=== PATIENT | female | born 1985 | race Caucasian/White ===

== ENCOUNTER 2020-09-06 02:47 | Emergency (ER) | payer SELFPAY ==
[~2020-09-06 02:47] MED LIST: AGM875T PO; HYDR-1231 PO; NAPR-243 PO; [UNRECOGNIZED DRUG - OTHER]
[2020-09-06] MEDS ORDERED: ORPHENADRINE 60 MG/2 ML (NORFLEX) AMP (ED ONLY) IM STA (03:11)
--- NOTE | 2020-09-06 03:20 | ED General ---
General Chief Complaint: General Problems/Pain Stated Complaint: NECK PAIN Nursing Triage Note: Pt states she woke up yesterday morning with neck pain. Pt tried alternating ice/ heat and taking ibuprofen but had no relief from the pain. Pt states its hard to turn her head either direction Source of Information: Patient History of Present Illness Date Seen by Provider: Sep 06, 2020 Time Seen by Provider: 02:51 Initial Comments 35 yo female presenting with complaint of pain and spasm in right shoulder and neck area. She denies direct trauma or injury. She does help with lifting and moving her mother, who is on Hospice. She also had been swimming and thinks she may have strained her neck and shoulder. She woke up yesterday with increased neck pain going into her shoulder. She denies any numbness or tingling. She has increased pain with trying to move her head. Trying to lift her arm and shoulder increases the pain as well. She has tried ibuprofen and Tylenol as well as multiple topical remedies and heat but not having any significant improvement. She felt like things were worse this morning and was h aving difficulty with moving her mother so she came to the ER to get some help. Timing/Duration: 1-2 Days, Getting Worse Severity: Moderate Modifying Factors: worse with Movement Associated Systoms: No Chest Pain, No Cough, No Diaphoresis, No Fever/Chills; Headaches (right sided posterior headache from where the muscle is tight and spasms going up the right side of her neck); No Loss of Appetite, No Malaise, No Nausea/Vomiting, No Rash, No Seizure, No Shortness of Air, No Syncope, No Weakness Allergies and Home Medications Allergies Coded Allergies: iron (Unverified Adverse Reaction, Mild, N/V, 09/09/13) Home Medications Baclofen 10 Mg Tablet, 10 MG PO TID PRN for MUSCLE SPASMS Prescribed by: MARY COTO on 09/06/20320 Ibuprofen 600 Mg Tablet, 600 MG PO Q8H PRN for pain/inflammation Prescribed by: MARY COTO on 09/06/20320 Patient Home Medication List Home Medication List Reviewed: Yes Review of Systems Review of Systems Constitutional: No chills, No fever EENTM: no symptoms reported Respiratory: no symptoms reported Cardiovascular: no symptoms reported Gastrointestinal: no symptoms reported Genitourinary: no symptoms reported Musculoskeletal: see HPI, neck pain (right trapezius muscle up the right side of neck) Skin: No rash Psychiatric/Neurological: Anxiety, Headache (right occipital head pain); Denies Numbness, Denies Paresthesia, Denies Tingling, Denies Tremors, Denies Weakness Past Gpidczt-Varpbz-Pornik Hx Patient Social History Tobacco Use?: Yes Tobacco type used: Cigarettes Smoking Status: Current Everyday Smoker Use of E-Cig and/or Vaping dev: No Substance use?: No Alcohol Use?: No Pt feels they are or have been: No Past Medical History Surgeries: No Respiratory: Yes Asthma Cardiac: No Neurological: No Reproductive Disorders: No 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 oz. 56.602779tz; BMI Method:Stated General Appearance: No Apparent Distress, Anxious HEENT: PERRL/EOMI Neck: Tender Lateral (right paraspinal and trapezius muscle tender to palpation with tightness and spasms palpated); No Tender Midline Respiratory: Chest Non Tender, Lungs Clear, Normal Breath Sounds Cardiovascular: Regular Rate, Rhythm, Normal Peripheral Pulses Back: No Vertebral Tenderness, Muscle Spasm (in trapezius and rhomboid muscle distribution on right side) Extremity: Normal Capillary Refill, Normal Range of Motion (pain with raising right shoulder/arm in the trapezius muscle area) Neurologic/Psychiatric: Alert, Oriented x3, No Motor/Sensory Deficits, 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 Treat with muscle relaxer and anti-inflammatories. Give Norflex injection for muscle relaxer here. Patient declined anti-inflammatory here in the ED and stated she could take ibuprofen when she got home. Prescription for baclofen and ibuprofen sent to [facility]. Counseled on follow-up and return precautions. Given information about using heat for pain as well as stretching exercises for the neck and upper shoulder back. Likely strained the muscle with repetitive motion and lifting with her mother as well as the recent swimming that she was not used to doing. Departure Impression Primary Impression: Strain of right trapezius muscle Qualified Codes: S46.811A - Strain of other muscles, fascia and tendons at shoulder and upper arm level, right arm, initial encounter Additional Impressions: Strain of cervical portion of right trapezius muscle Trapezius muscle spasm Disposition: HOME, SELF-CARE Condition: Stable Departure-Patient Inst. Decision time for Depature: 03:16 Referrals: NO,LOCAL PHYSICIAN (PCP) Primary Care Physician [facility] Patient Instructions: Muscle Spasm ED, Muscle Strain ED, Using Heat for Pain, Cervical Sprain ED, Neck Pain Exercises Add. Discharge Instructions: Continue with Ibuprofen 600 mg every 8 hours as needed for pain and inflammation. Take the muscle relaxer Baclofen (Lioresal) 10 mg up to every 8 hours as needed for pain and muscle spasm. May continue to use heat to try and help the muscle relax. Try some gentle stretching of the neck and shoulder to help the Trapezius muscle relax and not be so inflamed and spasm with tightness. If having continued problems/concerns you could also check with [facility] ([facility]) by calling [phone] to get established with a local provider in the clinic All discharge instructions reviewed with patient and/or family. Voiced understanding. Scripts Ibuprofen (Ibuprofen) 600 Mg Tablet 600 MG PO Q8H PRN for pain/inflammation for 10 Days, #30 TAB 0 Refills Prov: MARY COTO MD 09/06/20 Baclofen (Baclofen) 10 Mg Tablet 10 MG PO TID PRN for MUSCLE SPASMS for 7 Days, #21 TAB 0 Refills Prov: MARY COTO MD 09/06/20 Images Torso/Trunk 1 - Muscle Spams, Tenderness (tender to palpation and muscle spasms with tightness in right trapezius muscle extending up the neck on right side. no vertebral or bony tenderness. no bruising or rash) MARY COTO MD Sep 06, 2020 03:19
[2020-09-06] MEDS ORDERED: BACL10TA PO (03:21)
[2020-09-06] MEDS ORDERED: IBUP-1773 PO (03:21)
[2020-09-06 03:22] VITALS: BP 144/98
== END 2020-09-06 03:23 | disposition home or self-care (01) ==
LOC: EDUNIT# 02:47 → ER FS 02:51
DX: S46.811A Strain of other muscles, fascia and tendons at shoulder and upper arm level, right arm, initial encounter (principal); S16.1XXA Strain of muscle, fascia and tendon at neck level, initial encounter; M62.830 Muscle spasm of back; J45.909 Unspecified asthma, uncomplicated; F17.210 Nicotine dependence, cigarettes, uncomplicated; X50.0XXA Overexertion from strenuous movement or load, initial encounter
CPT/HCPCS: 99284

== ENCOUNTER 2021-11-18 04:08 | Emergency (ER) | payer MEDICAID ==
[~2021-11-18] VITALS: Ht 160 cm; Wt 69.0 kg
--- NOTE | 2021-11-18 05:12 | ED GU-Female ---
General Chief Complaint: OB < 20 WEEKS Stated Complaint: 2 MONTHS PREG, WOKE UP BLEEDING Nursing Triage Note: REPORTS BEING APPROX. 2 MONTHS WAKING UP WITH VAGINAL BLEEDING APPROX. 0230. HAS NOT HAD TO CHANGE PAD SINCE STARTED. Source: patient (ALAN ENRIQUEZ) History of Present Illness Date Seen by Provider: Nov 18, 2021 Time Seen by Provider: 04:40 Initial Comments This is a 36 year old who presents with vaginal bleeding. Patient states she is approximately 8 weeks and woke up early this morning with vaginal bleeding. Patient reports approximately a softball sized blood spot on her sheets. She states she went to the bathroom, put on a pad, and came to the ED. She states she does not think she has soaked through her current pad but is unsure. Patient reports lower abdominal pain, specifically on the right side. She states the abdominal pain has been present for about a week. Patient states she last had intercourse about 24 hours ago. Patient denies any bleeding immediately after intercourse. Patient states that about a week ago she was seen in an ED in [place] where she was diagnosed with trichomonas and had a transvaginal ultrasound that estimated her gestational age to be around 6 weeks at the time. Patient states she was treated but her partner has not been treated. Due to irregular periods, patient denies knowing when her LMP was. Based off of [facility] imaging report from patient, her BLANCA is 07/07/22 with a GA of approximately 7 weeks. Patient has not established care with an OB. Patient states she does not know her blood type. Patient denies complications with previous pregnancies. Patient denies fever, aches, chills, SOA, chest pain, or dizziness. Timing/Duration: this morning Severity/Quality: mild Location: RLQ (abdominal pain), vaginal (vaginal bleeding) Radiation: none Activities at Onset: rest Prior Genitourinary Problems: none Sexual Marquand History: single partner Associated Symptoms: abdominal pain; No dysuria, No fever/chills (ENRIQUEZMARIPOSA MCMULLENA) Initial Comments Pain is primarily in the right inguinal region. Patient presents pictures of her ultrasound demonstrating what appears to be a gestational sac with no anatomy visible. She does not know her LMP and states that no EDC was given to her. She reports her partner was not treated when she was treated for trichomonas. She resumed having intercourse with him after her treatment. She appears to have minimal active bleeding after arriving to the emergency room with very minimal blood on her pad. Patient reports that an MRI was performed during her ER visit in [place] to evaluate for appendicitis. She reports her appendix was not visualized. Patient intends to establish obstetrical care with Dr. GREEN. (OLENA SHEFFIELD MD) Allergies and Home Medications Allergies Coded Allergies: iron (Unverified Adverse Reaction, Mild, N/V, 09/09/13) Patient Home Medication List Home Medication List Reviewed: Yes (ALAN ENRIQUEZ) Discontinued Medications Baclofen (Baclofen) 10 Mg Tablet, 10 MG PO TID PRN for MUSCLE SPASMS Discontinued Reason: No Longer Taking Prescribed by: MARY COTO on 09/06/20320 Last Action: Discontinued Ibuprofen (Ibuprofen) 600 Mg Tablet, 600 MG PO Q8H PRN for pain/inflammation Discontinued Reason: No Longer Taking Prescribed by: MARY COTO on 09/06/20320 Last Action: Discontinued [Stomach Med (Ulcer)] , (Reported) Discontinued Reason: No Longer Taking Entered as Reported by: YULI MEJIA on 09/09/13 1613 Last Action: Discontinued Review of Systems Review of Systems Constitutional: no symptoms reported; No chills, No dizziness, No fever, No weakness EENTM: no symptoms reported Respiratory: no symptoms reported; No short of breath Cardiovascular: no symptoms reported; No chest pain Gastrointestinal: RLQ, abdominal pain (RLQ) Genitourinary: no symptoms reported : Yes Expected Date of Delivery: Jul 07, 2022 Musculoskeletal: no symptoms reported Skin: no symptoms reported Psychiatric/Neurological: No Symptoms Reported Endocrine: No Symptoms Reported Hematologic/Lymphatic: No Symptoms Reported (ALAN ENRIQUEZ) All Other Systemes Reviewed Negative Unless Noted: Yes (ALAN ENRIQUEZ) Past Zchpohs-Wiljob-Vdvkjf Hx Patient Social History Tobacco Use?: Yes Substance use?: No Alcohol Use?: No Pt feels they are or have been: No (ALAN ENRIQUEZ) Immunizations Up To Date First/Initial COVID19 Vaccinat: NA (ALAN ENRIQUEZ) Past Medical History Surgery/Hospitalization HX: C-SECT X3, PTSD Surgeries: No Respiratory: Yes Asthma Cardiac: No Neurological: No Last Menstrual Period: Oct 02, 2021 Reproductive Disorders: No 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 oz. 56.634744kv; 26.00 BMI Method:Stated General Appearance: WD/WN, no apparent distress HEENT: PERRL/EOMI Cardiovascular: regular rate, rhythm, no murmur Respiratory: lungs clear, normal breath sounds, no respiratory distress, no accessory muscle use Gastrointestinal: normal bowel sounds, soft; No distended, No guarding; tenderness (RLQ tenderness with palpation); No hernia Neurologic/Psychiatric: alert, normal mood/affect, oriented x 3 Skin: normal color, warm/dry FHTs were unable to be found with doppler. This was anticipated with gestational age of approximately 7wks (ALAN ENRIQUEZ) Progress/Results/Core Measures Suspected Sepsis SIRS Temperature: Pulse: 91 Respiratory Rate: 18 Laboratory Tests 11/18/21 05:10: Blood Pressure 136 /88 Mean: 104 Laboratory Tests 11/18/21 05:10: (ALAN ENRIQUEZ) Results/Orders Lab Results Laboratory Tests Test 11/18/21 05:10 11/18/21 06:04 Range/Units White Blood Count 14.3 H 4.3-11.0 10^3/uL Red Blood Count 3.77 L 3.80-5.11 10^6/uL Hemoglobin 11.9 11.5-16.0 g/dL Hematocrit 34 L 35-52 % Mean Corpuscular Volume 89 80-99 fL Mean Corpuscular Hemoglobin 32 25-34 pg Mean Corpuscular Hemoglobin Concent 35 32-36 g/dL Red Cell Distribution Width 12.8 10.0-14.5 % Platelet Count 330 130-400 10^3/uL Mean Platelet Volume 9.1 9.0-12.2 fL Immature Granulocyte % (Auto) 1 % Neutrophils (%) (Auto) 73 42-75 % Lymphocytes (%) (Auto) 17 12-44 % Monocytes (%) (Auto) 7 0-12 % Eosinophils (%) (Auto) 2 0-10 % Basophils (%) (Auto) 1 0-10 % Neutrophils # (Auto) 10.5 H 1.8-7.8 10^3/uL Lymphocytes # (Auto) 2.4 1.0-4.0 10^3/uL Monocytes # (Auto) 1.0 0.0-1.0 10^3/uL Eosinophils # (Auto) 0.3 0.0-0.3 10^3/uL Basophils # (Auto) 0.1 0.0-0.1 10^3/uL Immature Granulocyte # (Auto) 0.1 0.0-0.1 10^3/uL Neutrophils % (Manual) 73 % Lymphocytes % (Manual) 21 % Monocytes % (Manual) 4 % Eosinophils % (Manual) 1 % Basophils % (Manual) 1 % Rishabh Cells SLIGHT Urine Color OTHER H Urine Clarity SL CLOUDY Urine pH 5.5 5-9 Urine Specific [place] 1.020 1.016-1.022 Urine Protein TRACE H NEGATIVE Urine Glucose (UA) NEGATIVE NEGATIVE Urine Ketones NEGATIVE NEGATIVE Urine Nitrite NEGATIVE NEGATIVE Urine Bilirubin NEGATIVE NEGATIVE Urine Urobilinogen 0.2 < = 1.0 MG/DL Urine Leukocyte Esterase NEGATIVE NEGATIVE Urine RBC (Auto) 3+ H NEGATIVE Urine RBC 50-100 H /HPF Urine WBC NONE /HPF Urine Squamous Epithelial Cells 0-2 /HPF Urine Crystals NONE /LPF Urine Bacteria NEGATIVE /HPF Urine Casts NONE /LPF Urine Mucus SMALL H /LPF Urine Culture Indicated NO (OLENA SHEFFIELD MD) My Orders Orders - OLENA SHEFFIELD MD Ua Culture If Indicated (11/18/21 04:59) Cbc With Automated Diff (11/18/21 04:59) Abo Rh Type (11/18/21 04:59) Manual Differential (11/18/21 05:10) Hcg,Quantitative (11/18/21 05:58) (OLENA SHEFFIELD MD) Vital Signs/I&O 11/18/21 04:29 Temp 36.2 Pulse 91 Resp 18 B/P (MAP) 136/88 (104) Pulse Ox 97 O2 Delivery Room Air (OLENA SHEFFIELD MD) Vital Signs/I&O Capillary Refill : Less Than 3 Seconds (ZOEALAN) Blood Pressure Mean: 104 Progress Note : Time: 05:41 Progress Note Patient's right inguinal pain and tenderness does not seem very intense on evaluation. There are no palpable masses or hernias. She has no suprapubic pain or tenderness. She presents evidence from the prior ultrasound that she had an intrauterine gestational sac. Labs and urine were collected and are pending. We did attempt to obtain heart tones by Doppler but were unsuccessful. Consideration was given to possibly treating the trichomonas since patient was likely reexposed by resuming sexual contact with the same partner. However, there is controversy regarding the risks of metronidazole use versus the risk of trichomonas infection. Since there is no real clear benefit, patient was not retreated. Care is being transitioned to Dr. Gunter at this time with pending hCG quant. (OLENA SHEFFIELD MD) Departure Communication (Admissions) Assumed care of the patient at shift change, 0 600 with hCG levels pending. I agree with the previous provided history. Exam today shows very minimal abdominal pain but she does have some discomfort in the right lower groin, abdomen. She has had an MRI that was ultimately unable to visualize the appendix. Given that her pain has been present off and on for about 2 weeks I seriously doubt that this is from her appendix. No believe this is likely from a kidney stone at this time. He has had an ultrasound confirming intrauterine so ectopic is very unlikely at this point. hCG levels are normal. I counseled her on possibility that she is having a miscarriage versus subchorionic hemorrhage versus other cause of vaginal bleeding during early pr egnancy. She states understanding and will follow-up with an OB provider in the next 48 hours. Advise she return to the emergency department if she is bleeding more than 1 pad/tampon per hour for she gets dizzy, lightheaded. She states understanding. Her blood type is O+, does not require RhoGAM. Discharged in stable condition (STELLA GUNTER DO) Impression Primary Impression: Right inguinal pain Additional Impression: Vaginal bleeding during Disposition: HOME, SELF-CARE Condition: Stable Departure-Patient Inst. Referrals: CHRISTY GREEN MD NO,LOCAL PHYSICIAN (PCP) Primary Care Physician Add. Discharge Instructions: Please establish care with Dr. GREEN but call to schedule. Blood inurine no cramping, bleeding in the emergency room the emergency department. Return to the emergency department for any severe pain, bleeding requiring changing a pad/tampon more than once an hour, shortness of breath or dizziness. Increase your fluids at home and rest as needed. All discharge instructions reviewed with patient and/or family. Voiced understanding. Medical Student Attestation and Attending Note: I have personally interviewed and examined this patient along with Krista Enriquez, MS 4. I have reviewed student documentation including history, physical, and assessments. I agree with the documentation except where otherwise noted. Exam: General: Alert, oriented, no acute distress, well developed HEENT: Normocephalic and atraumatic Heart: Regular rate and rhythm without murmur Lungs: Clear to auscultation bilaterally with normal effort Abdomen: Soft, tenderness in the right inguinal region without mass or bulging to suggest hernia, nondistended, normal bowel sounds Neuropsych: Alert, oriented, no focal deficits Skin: Warm and dry without rashes (OLENA SHEFFIELD MD) Copy Copies To 1: CHRISTY GREEN MD, MIKAELA Nov 18, 2021 05:12 OLENA SHEFFIELD MD Nov 18, 2021 05:44 STELLA GUNTER DO Nov 18, 2021 06:45
[2021-11-18 05:25] LABS: BILIRUBIN,URINE NEGATIVE (NEGATIVE); CLARITY,URINE SL CLOUDY; COLOR,URINE OTHER; GLUCOSE, URINE (UA) NEGATIVE (NEGATIVE); KETONES,URINE NEGATIVE (NEGATIVE); LEUKOCYTE ESTERASE ,URINE NEGATIVE (NEGATIVE); NITRITE,URINE NEGATIVE (NEGATIVE); PH,URINE 5.5 (5-9); PROTEIN,URINE TRACE (NEGATIVE)
[2021-11-18 05:28] LABS: BASOPHILS # (AUTO) 0.1 10^3/uL (0.0-0.1); BASOPHILS % (AUTO) 1 % (0-10); EOSINOPHILS # (AUTO) 0.3 10^3/uL (0.0-0.3); EOSINOPHILS % (AUTO) 2 % (0-10); HEMATOCRIT 34 % (35-52); HEMOGLOBIN 11.9 g/dL (11.5-16.0); LYMPHOCYTES # (AUTO) 2.4 10^3/uL (1.0-4.0); LYMPHOCYTES % (AUTO) 17 % (12-44); MEAN CORPUSCULAR HEMOGLOBIN 32 pg (25-34); MEAN CORPUSCULAR HGB CONC 35 g/dL (32-36); MEAN CORPUSCULAR VOLUME 89 fL (80-99); MEAN PLATELET VOLUME 9.1 fL (9.0-12.2); MONOCYTES % (AUTO) 7 % (0-12); NEUTROPHILS # (AUTO) 10.5 10^3/uL (1.8-7.8); NEUTROPHILS % (AUTO) 73 % (42-75); PLATELET COUNT 330 10^3/uL (130-400); WHITE BLOOD COUNT 14.3 10^3/uL (4.3-11.0)
[2021-11-18 05:37] LABS: BACTERIA,URINE NEGATIVE /HPF; RBC,URINE 50-100 /HPF; SQUAMOUS EPITHELIAL CELL,UR 0-2 /HPF
[2021-11-18 06:11] LABS: BASOPHILS % (MANUAL) 1 %; EOSINOPHILS % (MANUAL) 1 %; LYMPHOCYTES % (MANUAL) 21 %; MONOCYTES % (MANUAL) 4 %; NEUTROPHILS % (MANUAL) 73 %
[2021-11-18 06:12] LABS: BURR CELLS SLIGHT
[2021-11-18 06:46] VITALS: BP 132/78
== END 2021-11-18 06:50 | disposition home or self-care (01) ==
LOC: EDUNIT# 04:08 → ER 04:14
DX: O20.9 Hemorrhage in early pregnancy, unspecified (principal); Z72.0 Tobacco use; Z3A.08 8 weeks gestation of pregnancy; Z28.310 Unvaccinated for COVID-19
CPT/HCPCS: 36415; 81000; 84702; 85007; 85027; 86900; 86901

== ENCOUNTER → 2021-11-18 | Outpatient (CLI) | payer MEDICAID ==
[~2021-11-18] MED LIST changes: +BACL10TA PO; +IBUP-1773 PO
--- NOTE | 2021-11-18 13:11 | Diagnostic Imaging Report ---
INDICATION: Vaginal bleeding in early . FINDINGS: The uterus measures 9.0 x 4.1 x 5.5 cm. There is an intrauterine gestational sac containing a pole. Slater-Marietta-rump length measurement is consistent with 7 weeks 2 days gestation. heart rate was recorded at 147 BPM. No perigestational sac hemorrhage is detected. The adnexa are unremarkable. IMPRESSION: Single live IUP 7 weeks 2 days gestational age. Estimated date of confinement sonographically is 07/05/2022. No complicating features are detected. Dictated by: Dictated on workstation # [id number]
== END ==
LOC: RAD 10:50
PROVIDERS: ATTEND Obstetrics & Gynecology
DX: O20.9 Hemorrhage in early pregnancy, unspecified (principal); Z3A.01 Less than 8 weeks gestation of pregnancy
CPT/HCPCS: 76801; 76817

== ENCOUNTER 2021-11-26 19:47 | Emergency (ER) | payer MEDICAID ==
[~2021-11-26] VITALS: Ht 160 cm; Wt 69.4 kg
[2021-11-26 20:01] VITALS: BP 154/86
--- NOTE | 2021-11-26 20:25 | ED Abdominal Pain ---
General Chief Complaint: Abdominal/GI Problems Stated Complaint: ABD PAIN,PAIN DOWN LEGS,WEAK,SHAKY,10 WKS PREG. Nursing Triage Note: Generalized abd pain going on for approx 3 wks that radiates down both her legs. Pt reports intermittent bleeding with clots. She reports she is 10 wks and has been following up with OB. She also is reporting headaches and generalized weakness. Pt denies any problems with urination or bowels at this time. Source of Information: Patient Exam Limitations: No Limitations History of Present Illness Date Seen by Provider: Nov 26, 2021 Time Seen by Provider: 20:00 Initial Comments 36-year-old female currently approximately 10 weeks presents for pelvic pain, vaginal bleeding. Symptoms started about 3 weeks ago. She was initially seen here after she had a normal ultrasound showing an intrauterine gestational sac. Work-up at that time was unremarkable. She followed up with OB last week and had an ultrasound with normal heart tones and normal appearance. She continues to have cramping, bleeding. She does not require RhoGAM per record review. Symptoms are relatively unchanged. She has been taking Tylenol and was recently told to take Motrin as well. She denies any fevers chills nausea or vomiting. Pain is described as a cramping sensation with radiation into her right leg. She denies any changes in bowel or bladder habits. She has had her urine checked her real estate subagent twice and here wants with no evidence for infection. She has also had an MRI to rule out appendicitis which was unable to visualize the appendix but there are no secondary signs of appendicitis. Allergies and Home Medications Allergies Coded Allergies: iron (Unverified Adverse Reaction, Mild, N/V, 09/09/13) Patient Home Medication List Home Medication List Reviewed: Yes Review of Systems Review of Systems Constitutional: no symptoms reported EENTM: No Symptoms Reported Respiratory: No Symptoms Reported Cardiovascular: No Symptoms Reported Gastrointestinal: Abdominal Pain Genitourinary: Other (Vaginal bleeding) Musculoskeletal: no symptoms reported Skin: no symptoms reported Psychiatric/Neurological: No Symptoms Reported Endocrine: No Symptoms Reported Hematologic/Lymphatic: No Symptoms Reported Past Gyzldky-Zirzqc-Vxsfpf Hx Patient Social History Tobacco Use?: No Use of E-Cig and/or Vaping dev: No Substance use?: No Alcohol Use?: No Immunizations Up To Date First/Initial COVID19 Vaccinat: NA Past Medical History Surgery/Hospitalization HX: C-SECT X3, PTSD Surgeries: No Respiratory: Yes Asthma Cardiac: No Neurological: No Last Menstrual Period: Sep 17, 2021 Reproductive Disorders: No 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 oz. 56.807611bz; 27.00 BMI Method:Stated General Appearance: WD/WN, no apparent distress HEENT: normal ENT inspection, TMs normal, pharynx normal Neck: non-tender, full range of motion, supple, normal inspection Respiratory: chest non-tender, lungs clear, normal breath sounds, no respiratory distress, no accessory muscle use Cardiovascular: regular rate, rhythm, no edema, no gallop, no JVD, no murmur Gastrointestinal: normal bowel sounds, soft, no organomegaly, tenderness (Sup rapubic tenderness with voluntary guarding. No rebound tenderness. No mass organomegaly. No skin changes) Extremities: normal range of motion, non-tender, normal inspection, no pedal edema, no calf tenderness, normal capillary refill Back: normal inspection, no CVA tenderness, no vertebral tenderness Neurologic/Psychiatric: alert, normal mood/affect, oriented x 3 Skin: normal color, warm/dry Lymphatic: no adenopathy Progress/Results/Core Measures Results/Orders My Orders Orders - STELLA GUNTER DO Hydrocodone/Apap 5/325 Tablet (Lortab 5 (11/26/21 20:30) Vital Signs/I&O 11/26/21 20:01 Temp 36.7 Pulse 104 Resp 24 B/P (MAP) 154/86 (108) Pulse Ox 100 Blood Pressure Mean: 108 Departure Communication (Admissions) Patient is hemodynamically stable. She has had extensive work-up to rule out ectopic , uterine, tubal or ovarian abnormalities, intra-abdominal concerns. All have been negative at this time. I think this makes emergent medical condition extremely unlikely at this time. We will go ahead and treat her pain. No indication for repeat urinalysis that she has had 3 since the onset of her symptoms all of which were negative. No utility in a pelvic exam at this point as this has been done recently and she had a normal ultrasound as well. Impression Primary Impression: Abdominal pain during in first trimester Disposition: HOME, SELF-CARE Condition: Stable Departure-Patient Inst. Referrals: CHRISTY GREEN MD (PCP/Family) Primary Care Physician Patient Instructions: Bleeding in Early ED Add. Discharge Instructions: There is no indication of an emergent medical condition at this time. I recommend continued follow-up with your real estate subagent. I have provided you with pain medication which you may use as needed. Do not take after medicine containing Tylenol while taking this. Return to the emergency department for any severe concerns. Follow-up with real estate subagent next week. All discharge instructions reviewed with patient and/or family. Voiced understanding. STELLA GUNTER DO Nov 26, 2021 20:25
[2021-11-26] MEDS ORDERED: ACHD5005 PO (20:26)
[2021-11-26] MEDS ORDERED: HYDROcodone/APAP 5 MG/325 MG (LORTAB) TAB PO ONE ×2 (20:30)
[2021-12-01] MEDS ORDERED: METR-145 PO (07:29)
== END 2021-11-26 20:36 | disposition home or self-care (01) ==
LOC: EDUNIT# 19:47 → ER 19:49
DX: O26.891 Other specified pregnancy related conditions, first trimester (principal); O09.521 Supervision of elderly multigravida, first trimester; R10.2 Pelvic and perineal pain; Z28.310 Unvaccinated for COVID-19; Z3A.10 10 weeks gestation of pregnancy
CPT/HCPCS: 99283

== ENCOUNTER 2021-11-30 21:30 | Emergency (ER) | payer MEDICAID ==
[~2021-11-30] VITALS: Ht 160 cm; Wt 70.3 kg
[~2021-11-30 21:30] MED LIST changes: +ACHD5005 PO
[2021-11-30 22:19] LABS: BILIRUBIN,URINE NEGATIVE (NEGATIVE); CLARITY,URINE CLEAR; COLOR,URINE YELLOW; GLUCOSE, URINE (UA) NEGATIVE (NEGATIVE); KETONES,URINE NEGATIVE (NEGATIVE); LEUKOCYTE ESTERASE ,URINE 1+ (NEGATIVE); NITRITE,URINE NEGATIVE (NEGATIVE); PROTEIN,URINE NEGATIVE (NEGATIVE)
[2021-11-30 22:31] LABS: BACTERIA,URINE FEW /HPF; TRICHOMONAS,URINE FEW /HPF
--- NOTE | 2021-11-30 22:32 | ED Abdominal Pain ---
General Chief Complaint: OB < 20 WEEKS Stated Complaint: ABDOMINAL PAIN Nursing Triage Note: pt ambulatory to room. states for 3 weeks she has had constant bilat lower abd pain she describes as "ripping, tearing, and cutting like an autopsy from the inside." pt reports having multiple ultrasounds and mris. pt reports being 6-10 weeks , unsure when LMP is. History of Present Illness Date Seen by Provider: Nov 30, 2021 Time Seen by Provider: 21:50 Initial Comments This 36-year-old woman 4 para 3 with EDC of July 05 presents to the emergency room with complaints of pain across the pelvic region described as a ripping or tearing pain. This is sometimes worse with movements. She has been worked up multiple times for this pain and had multiple ultrasounds. She states the pain has intensified this evening. She has had persistent vaginal bleeding for couple of weeks. She originally was evaluated at a hospital in [place] where she was diagnosed with trichomonas. She was treated but then resumed intercourse with her partner who had not been treated. She has associated symptoms of headache, nausea, and feeling of weakness. Pain sometimes radiates down her thighs. She has establish care with Dr. GREEN and was seen there on November 22. She has tried a myriad of medications and nonpharmacologic treatments for her pain without a lot of success. Ultrasound on November 18 demonstrated a single live intrauterine at about 7 weeks and 2 days gestational age. Allergies and Home Medications Allergies Coded Allergies: iron (Unverified Adverse Reaction, Mild, N/V, 09/09/13) Patient Home Medication List Home Medication List Reviewed: Yes Hydrocodone Bit/Acetaminophen (HYDROcodone/APAP 5 MG/325 MG TAB) 1 Tab Tab, 1 TAB PO Q6H Prescribed by: STELLA GUNTER MD on 11/26/212026 Metronidazole (Metronidazole) 500 Mg Tablet, 500 MG PO BID Prescribed by: OLENA HANLEY on 12/01/21 [id number] Review of Systems Review of Systems Constitutional: no symptoms reported EENTM: No Symptoms Reported Respiratory: No Symptoms Reported Cardiovascular: No Symptoms Reported Gastrointestinal: See HPI Genitourinary: See HPI Musculoskeletal: no symptoms reported Skin: no symptoms reported Psychiatric/Neurological: See HPI Endocrine: No Symptoms Reported Hematologic/Lymphatic: No Symptoms Reported Past Ebvbkuj-Gnleyl-Gleoni Hx Patient Social History Tobacco Use?: Yes Tobacco type used: Cigarettes Smoking Status: Current Everyday Smoker Substance use?: Yes Substance type: Marijuana Alcohol Use?: No Immunizations Up To Date First/Initial COVID19 Vaccinat: NA Past Medical History Surgery/Hospitalization HX: C-SECT X3, PTSD Surgeries: Yes Section Respiratory: Yes Asthma Cardiac: No Neurological: Yes Headaches /Migraines Reproductive Disorders: No 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 oz. 56.032347ac; 27.00 BMI Method:Stated General Appearance: WD/WN, mild distress HEENT: normal ENT inspection Neck: normal inspection Respiratory: lungs clear, normal breath sounds, no respiratory distress Cardiovascular: regular rate, rhythm, no edema, no murmur Gastrointestinal: normal bowel sounds, soft, tenderness (Across the pelvis) Extremities: normal inspection, no pedal edema Pelvic: normal external exam, no cerv. motion tender (Cervix was not digitally palpated but was tender with collection swabs), vaginal bleeding (Blood within the vaginal vault and in the cervical os), other (No inflammatory changes were noted with the cervix or vaginal wall) Neurologic/Psychiatric: alert, normal mood/affect, oriented x 3 Skin: normal color, warm/dry Progress/Results/Core Measures Results/Orders Lab Results Laboratory Tests Test 11/30/21 22:15 11/30/21 23:18 Range/Units Urine Color YELLOW Urine Clarity CLEAR Urine pH 6.0 5-9 Urine Specific Usk >=1.030 1.016-1.022 Urine Protein NEGATIVE NEGATIVE Urine Glucose (UA) NEGATIVE NEGATIVE Urine Ketones NEGATIVE NEGATIVE Urine Nitrite NEGATIVE NEGATIVE Urine Bilirubin NEGATIVE NEGATIVE Urine Urobilinogen 0.2 < = 1.0 MG/DL Urine Leukocyte Esterase 1+ H NEGATIVE Urine RBC (Auto) 3+ H NEGATIVE Urine RBC 2-5 H /HPF Urine WBC 5-10 H /HPF Urine Squamous Epithelial Cells 2-5 /HPF Urine Crystals NONE /LPF Urine Bacteria FEW H /HPF Urine Casts NONE /LPF Urine Mucus NEGATIVE /LPF Urine Trichomonas FEW H /HPF Urine Culture Indicated YES Chlamydia DNA Probe Not Detected Not Detected Neisseria gonorrhoeae DNA Probe Not Detected Not Detected Micro Results Microbiology 11/30/21 Genital Culture - Preliminary, Resulted Usual Vaginal Susan 11/30/21 Wet Prep - Final, Resulted 11/30/21 Urine Culture - Final, Complete Gardnerella vaginalis Gram Pos Mixed Bacterial Susan My Orders Orders - OLENA SHEFFIELD MD Ua Culture If Indicated (11/30/21 21:53) Wet Prep (11/30/21 22:19) Neisseria Gonorrhea Swab (11/30/21 22:19) Genital Culture (11/30/21 22:19) Chlamydia Trachomatis Swab (11/30/21 22:19) Urine Culture (11/30/21 22:15) Metronidazole Tablet (Flagyl Tablet) (11/30/21 23:15) Medications Given in ED Vital Signs/I&O 11/30/21 11/30/21 21:40 23:37 Temp 37.0 Pulse 109 98 Resp 37 20 B/P (MAP) 120/70 (87) 115/72 Pulse Ox 97 97 O2 Delivery Room Air Blood Pressure Mean: 87 Progress Progress Note : Progress Note Case was reviewed with Dr. GREEN. We discussed whether a pelvic exam should be performed. He recommended performing a pelvic exam to reevaluate for trichomonas. Patient was agreeable to this. Urinalysis demonstrated trichomonas. This was confirmed on wet prep slides. Although benefits of treating trichomonas are debated in the literature recommendations, this patient has had persistent significant symptoms. We therefore are electing to treat. She was started on Flagyl. I strongly stressed the importance of her partner being treated and remaining completely abstinent until he is for sure treated. Departure Impression Primary Impression: Bacterial vaginosis Additional Impressions: Vaginal bleeding during Pelvic pain affecting Qualified Codes: O26.891 - Other specified related conditions, first trimester; R10.2 - Pelvic and perineal pain Disposition: 01 HOME, SELF-CARE Condition: Stable Departure-Patient Inst. Referrals: CHRISTY GREEN MD (PCP/Family) Primary Care Physician Scripts Metronidazole (Metronidazole) 500 Mg Tablet 500 MG PO BID, #14 TAB Prov: OLENA SHEFFIELD MD 12/01/21 Copy Copies To 1: CHRISTY GREEN MD, JOSHUA T MD Nov 30, 2021 22:32
[2021-11-30] MEDS ORDERED: metroNIDAZOLE 500 MG (FLAGYL) TAB PO ONE (23:15)
[2021-11-30 23:37] VITALS: BP 115/72
[2021-12-01] MEDS ORDERED: METR-145 PO (07:29)
== END 2021-11-30 23:37 | disposition home or self-care (01) ==
LOC: EDUNIT# 21:30 → ER 21:31
DX: O23.591 Infection of other part of genital tract in pregnancy, first trimester (principal); O20.9 Hemorrhage in early pregnancy, unspecified; O26.891 Other specified pregnancy related conditions, first trimester; R10.2 Pelvic and perineal pain; O99.331 Smoking (tobacco) complicating pregnancy, first trimester; F17.210 Nicotine dependence, cigarettes, uncomplicated; Z3A.10 10 weeks gestation of pregnancy; Z28.310 Unvaccinated for COVID-19
CPT/HCPCS: 36415; 81000; 87070; 87077; 87088; 87205; 87210; 87491; 87591; 99284